=== PATIENT | male | born 1970 | race African-American/Black ===

== ENCOUNTER 2021-03-22 20:20 | Emergency (ER) | payer MEDICAID ==
[~2021-03-22] VITALS: Ht 193 cm; Wt 102.1 kg
[2021-03-22 20:45] VITALS: BP 167/90
--- NOTE | 2021-03-22 20:48 | NUR ---
TO LOBBY A/W BED AMBULATORY
[2021-03-22] MEDS ORDERED: HYDROcodone/APAP 7.5/325 MG 1 TAB PO ONE (22:20)
[2021-03-22 22:33] LABS: APPEARANCE,URINE CLEAR (CLEAR); BILIRUBIN,URINE NEGATIVE (NEGATIVE); BLOOD, URINE NEGATIVE (NEGATIVE); COLOR,URINE YELLOW (YELLOW); LEUKOCYTE ESTERASE ,URINE NEGATIVE (NEGATIVE); NITRITE, URINE NEGATIVE (NEGATIVE); UGLUCOSE NEGATIVE (NEGATIVE)
[2021-03-22 23:14] LABS: BASOPHILS % (AUTO) 0.5 % (0.0-2.0); EOSINOPHILS # (AUTO) 0.2 K/uL (0-0.4); EOSINOPHILS % (AUTO) 2.9 % (0.0-4.0); HEMATOCRIT 43.8 % (36-52); HEMOGLOBIN 14.8 g/dL (12.0-18.0); LYMPHOCYTES # (AUTO) 2.6 K/uL (2.0-11.5); LYMPHOCYTES % (AUTO) 37.8 % (20.5-51.1); MEAN CORPUSCULAR HEMOGLOBIN 30 pg (27-31); MEAN CORPUSCULAR HGB CONC 34 g/dL (33-37); MEAN CORPUSCULAR VOLUME 87.3 fL (80-94); MONOCYTES # (AUTO) 0.6 K/uL (0.8-1.0); MONOCYTES % (AUTO) 8.7 % (1.7-9.3); NEUTROPHILS # (AUTO) 3.4 K/uL (1.8-7.7); NEUTROPHILS % (AUTO) 50.1 % (42.2-75.2); PLATELET COUNT (AUTO) 193 K/uL (140-450); RED BLOOD CELL COUNT(AUTO) 5.01 MIL/uL (4.20-6.10); RED CELL DISTRIBUTION WIDTH 14.4 % (11.6-13.7); WHITE BLOOD COUNT (AUTO) 6.8 K/uL (4.8-10.8)
[2021-03-22 23:53] LABS: ANION GAP 13.7 (8-16); CARBON DIOXIDE 27.5 mmol/L (21-32); CREATININE 0.8 mg/dL (0.6-1.3); POTASSIUM 4.2 mmol/L (3.5-5.1); TOTAL BILIRUBIN 0.2 mg/dL (0.0-1.0)
[2021-03-23] MEDS ORDERED: IBUP-2213 PO (00:14)
[2021-03-23] MEDS ORDERED: TAMS0.4C96 PO (00:14)
[2021-03-23] MEDS ORDERED: HYDR-5080 PO (00:14)
[2021-03-23 00:41] VITALS: BP 167/90
--- NOTE | 2021-03-23 00:41 | NUR ---
Patient discharged with v/s stable. Written and verbal after care instructions given and explained. Patient verbalized understanding. Ambulatory with steady gait. All questions addressed prior to discharge. Advised to follow up with PMD.
== END 2021-03-23 00:40 | disposition home or self-care (01) ==
LOC: MED 20:20
DX: N20.0 Calculus of kidney (principal); Z79.899 Other long term (current) drug therapy; Z87.442 Personal history of urinary calculi
CPT/HCPCS: 36415; 80053; 81003; 83690; 85025; 99284

== ENCOUNTER 2021-07-16 09:29 | Emergency (ER) | payer MEDICAID ==
[~2021-07-16] VITALS: Ht 190.5 cm; Wt 98.4 kg
[~2021-07-16 09:29] MED LIST: HYDR-5080 PO; IBUP-2213 PO; TAMS0.4C96 PO
[2021-07-16 09:34] VITALS: BP 140/104
--- NOTE | 2021-07-16 09:34 | NUR ---
PT AMBULATED TO BED 08.
--- NOTE | 2021-07-16 09:59 | NUR ---
AT PT BEDSIDE
--- NOTE | 2021-07-16 10:06 | NUR ---
51 Y/O MALE BIB SELF C/O CONSTANT BACK PAIN X 1 DAY. PT STATES PAIN STARTED AFTER PICKING UP A BOX FROM THE FLOOR. PT STATES THE PAIN INCREASES WITH SITTING. PT DENIES DYSURIA. PT DENIES CHEST PAIN, SOB. PT DENIES FEVER OR CHILLS. PT ALERT AND ORIENTED X4. PMH:HERNIA, KIDNEY STONES MED: NORCO NKA
[2021-07-16] MEDS ORDERED: predniSONE 20 MG TAB PO ONE (10:10)
[2021-07-16] MEDS ORDERED: LIDOCAINE 5% 1 EA PATCH TP ONE (10:10)
[2021-07-16] MEDS ORDERED: methocarbamoL 500 MG TAB PO ONE (10:10)
[2021-07-16] MEDS ORDERED: IBUPROFEN 800 MG TAB PO ONE (10:10)
[2021-07-16] MEDS ORDERED: MORPHINE SULFATE 4 MG/ML SYR IM ONE (10:10)
--- NOTE | 2021-07-16 10:24 | NUR ---
PT TAKEN TO XR VIA WC
--- NOTE | 2021-07-16 10:35 | NUR ---
PATIENT RETURNED FROM RAD
[2021-07-16] MEDS ORDERED: HYDROcodone/APAP 10/325 MG 1 TAB TAB PO ONE (11:20)
--- NOTE | 2021-07-16 11:34 | NUR ---
PATIENT HAS TRANSPORTATION HOME ([facility]).
--- NOTE | 2021-07-16 11:39 | NUR ---
DR. CAPPS IS REEVALUATING PATIENT AT BEDSIDE
[2021-07-16] MEDS ORDERED: IBUP-2213 PO (12:00)
[2021-07-16] MEDS ORDERED: LID5T TP (12:00)
[2021-07-16] MEDS ORDERED: METH-1681 PO (12:00)
[2021-07-16] MEDS ORDERED: HYDR-5080 PO (12:01)
[2021-07-16 12:49] VITALS: BP 122/68
== END 2021-07-16 12:30 | disposition home or self-care (01) ==
LOC: MED 09:29
DX: S39.012A Strain of muscle, fascia and tendon of lower back, initial encounter (principal); M47.816 Spondylosis without myelopathy or radiculopathy, lumbar region; M43.16 Spondylolisthesis, lumbar region; R03.0 Elevated blood-pressure reading, without diagnosis of hypertension; Z98.890 Other specified postprocedural states; Z79.899 Other long term (current) drug therapy; Z79.891 Long term (current) use of opiate analgesic; Z79.1 Long term (current) use of non-steroidal anti-inflammatories (NSAID); X58.XXXA Exposure to other specified factors, initial encounter; Y92.89 Other specified places as the place of occurrence of the external cause; Y93.89 Activity, other specified; Y99.8 Other external cause status
CPT/HCPCS: 72100; 81002; 96372; 99284; J2270; J7512